=== PATIENT | female | born 1960 | race Caucasian/White ===

== ENCOUNTER 2023-10-20 12:45 | Emergency (ER) | payer OTHER, MEDICAID, SELFPAY ==
[2023-10-20 12:59] VITALS: BP 147/82; PULSE 51; RESP 17; TEMP 36.6; O2SAT 93; BMI 37.4
--- NOTE | 2023-10-20 13:03 | DI.RAD.S_ITS ---
PROCEDURE: XR SHOULDER LT MIN 2V INDICATIONS: shoulder pain TECHNIQUE: For views of the shoulder were acquired. COMPARISON: None. FINDINGS: Bones: No acute fracture or dislocation. Inferior subluxation of humeral head in relation to glenoid suggestive of moderate to large joint effusion. Moderate acromioclavicular joint and glenohumeral joint osteoarthritic changes also seen. No suspicious bony lesions. Visualized ribs appear intact. Soft tissues: No suspicious soft tissue calcifications. IMPRESSION: Suggestion of moderate to large joint effusion with inferior subluxation at glenohumeral joint. No acute fracture or dislocation. Moderate left shoulder joint osteoarthritis. Dictated by: Keyon Espinoza M.D. on 10/20/2023 at 13:52 Approved by: Keyon Espinoza M.D. on 10/20/2023 at 13:55
[2023-10-20 14:01] VITALS: PULSE 48; RESP 20; O2SAT 96
--- NOTE | 2023-10-20 14:35 | ED.GENADULT ---
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 Patient states in the last week she was cleaning a lot started having discomfort in her left shoulder. She states she did not recall any trauma or injury. Her friend noticed her shoulder looks like it has sitting a little bit lower. Patient states that it is painful to lift her shoulder she has difficulty with it. She states most painful just behind the shoulder and a little bit in the front. Patient states she has not had any prior shoulder issues, she has not had any prior dislocations. She is pain radiates down a little bit. No numbness tingling or weakness. Patient states no other injuries. She has been taking Tylenol for pain. She is on methadone chronically. No known drug allergies. Related Data Allergies Allergy/AdvReac Type Severity Reaction Status Date / Time No Known Drug Allergies Allergy Verified 10/20/23 13:04 Review of Systems Review of Systems ROS Unobtainable: All systems reviewed & are unremarkable except as noted in HPI and below Patient History Social History Smoking Status: Unknown if ever smoked Smoking Status: Unknown if ever smoked alcohol intake frequency: holidays/special occasions only Substance Use Type: does not use Exam Narrative Exam Narrative: GENERAL: Alert and oriented x three, mild distress. HEENT: Head normocephalic, atraumatic, EOMI, pupils reactive, face symmetric, moist mucous membranes NECK: Supple, full range of motion CARDIOVASCULAR: Regular rate and rhythm without murmurs, rubs or gallops. RESPIRATORY: Breath sounds equal bilaterally, no wheezes rales or rhonchi. ABDOMEN: Soft, nontender. Normoactive bowel sounds all 4 quadrants. No guarding or rebound, rigidity, no mass EXTREMITIES: Normal range of motion of the wrist, fingers and show elbow. Patient has decreased movement of the shoulder. With the internal external rotation patient does have feels like some instability. She has mild tenderness posterior AC joint. No tenderness of the biceps tendon. No obvious deformity of the shoulder itself but left shoulder seems to sit little bit lower. No clubbing or edema. Neurovascularly intact. 2+ radial pulses bilaterally. Sample Distributor equal bilaterally. Patient is using her phone with her left hand without issue. No warmth erythema or other changes appreciated. No swelling. NEUROLOGICAL: Cranial nerves II through XII grossly intact. Moving all extremities SKIN: Warm, dry, no petechiae, no rashes or lesions. Initial Vital Signs Initial Vital Signs: Vital Signs Temperature 97.8 F 10/20/23 12:59 Pulse Rate 51 L 10/20/23 12:59 Respiratory Rate 17 10/20/23 12:59 Blood Pressure 147/82 H 10/20/23 12:59 Pulse Oximetry 93 10/20/23 12:59 Oxygen Delivery Method Nasal Cannula 10/20/23 12:59 Oxygen Flow Rate 2.5 10/20/23 12:59 Course Orders Ordered: ED Orders 10/20/23 13:03 XR shoulder LT min 2V Stat 10/20/23 15:15 CT UE LT wo con Stat Vital Signs Vital signs: Vital Signs - 8 hr 10/20/23 12:59 10/20/23 14:01 10/20/23 16:54 Temperature 97.8 F Pulse Rate 51 L 48 L 49 L Respiratory Rate 17 20 22 Blood Pressure 147/82 H 184/82 H Pulse Oximetry 93 96 94 Oxygen Delivery Method Nasal Cannula Nasal Cannula Nasal Cannula Oxygen Flow Rate 2.5 2 2 Medical Decision Making Imaging Data Extremity x-ray #1: Radiologist's Impression: [address] [address] XRay Report Signed Patient: Samantha Beard MR#: [id number] : 1960 Acct:[id number] Age/Sex: 63 / F Date of Service: 10/20/23 Loc: ED Accession Number: [id number] Procedure: XR shoulder LT min 2V Ordering Provider: Tracey Ferreira P.A-C PROCEDURE: XR SHOULDER LT MIN 2V INDICATIONS: shoulder pain TECHNIQUE: For views of the shoulder were acquired. COMPARISON: None. FINDINGS: Bones: No acute fracture or dislocation. Inferior subluxation of humeral head in relation to glenoid suggestive of moderate to large joint effusion. Moderate acromioclavicular joint and glenohumeral joint osteoarthritic changes also seen. No suspicious bony lesions. Visualized ribs appear intact. Soft tissues: No suspicious soft tissue calcifications. IMPRESSION: Suggestion of moderate to large joint effusion with inferior subluxation at glenohumeral joint. No acute fracture or dislocation. Moderate left shoulder joint osteoarthritis. Dictated by: Keyon Espinoza M.D. on 10/20/2023 at 13:52 Approved by: Keyon Espinoza M.D. on 10/20/2023 at 13:55 CT shoulder : Radiologist's Impression: [address] [address] [address] Scan Report Signed Patient: Samantha Beard MR#: [id number] : 1960 Acct:[id number] Age/Sex: 63 / F Date of Service: 10/20/23 Loc: ED Accession Number: [id number] Procedure: CT UE LT wo con Ordering Provider: Layla López D.O. PROCEDURE: CT UE LT WO CON INDICATIONS: shoulder, dislocation vs other TECHNIQUE: Noncontrast 0.75 mm thick sections acquired from the acromioclavicular joint to the inferior scapula, with coronal and sagittal reformatting. COMPARISON: [facility], CR, XR SHOULDER LT MIN 2V, 10/20/2023, 13:12. FINDINGS: Image quality: Excellent. Bones: There is moderate acromioclavicular joint and glenohumeral joint osteoarthritis with joint space narrowing, subchondral sclerosis and marginal osteophyte formation. No acute fracture or dislocation. Slight inferior subluxation of humeral head in relation to glenoid is seen. Nonspecific subcortical cystic areas involving anterior and lateral aspect of humeral head near rotator cuff tendon insertion is seen. No suspicious bony lesions. The visualized left ribs are intact. Soft tissues: There is moderate glenohumeral joint effusion and subacromial subdeltoid bursal fluid. No calcified intra-articular loose bodies. No definite full-thickness rotator cuff tendon rupture. No significant rotator cuff muscle atrophy is seen on sagittal images. No abnormal soft tissue calcifications. There is no axillary lymphadenopathy by size criteria. The visualized left lung field show scattered scarring/atelectasis and mild centrilobular emphysema. No focal infiltrate or pneumothorax. IMPRESSION: 1. Moderate glenohumeral joint effusion and subacromial subdeltoid bursal fluid. No calcified intra-articular loose bodies. 2. Slight inferior subluxation of humeral head in relation to glenoid . No acute fracture or dislocation. Moderate acromioclavicular joint and glenohumeral joint osteoarthritis. 3. No full-thickness rotator cuff tendon rupture. No significant rotator cuff muscle atrophy. No abnormal soft tissue calcifications. Dictated by: Keyon Espinoza M.D. on 10/20/2023 at 15:45 Approved by: Keyon Espinoza M.D. on 10/20/2023 at 15:48 [facility] Narrative Medical decision making narrative: Spoke with Dr. Mcclelland, nontraumatic subluxation. Reviewed imaging, patient and feel like she had a little bit of instability on exam. CT shows moderate glenohumeral joint effusion subacromial subdeltoid bursal fluid no calcified intra-articular loose bodies. Slight inferior sublux humeral head in relation to glenoid no acute fracture or dislocation moderate AC joint and glenohumeral joint osteoarthritis. No full-thickness rotator cuff tendon rupture, no significant rotator cuff atrophy. Discussed with Dr. Espinoza, plan for sling follow up in the office. Discussed with patient decrease usage can work on range of motion. Discharge Plan Departure Patient Disposition: Home Clinical Impression: Effusion of glenohumeral joint of left upper extremity Activity Restrictions/Additional Instructions: Your imaging today shows a moderate glenohumeral joint effusion and some subacromial subdeltoid bursal fluid. There is a slight subluxation of the humeral head but no fracture or dislocation of the shoulder. You do have osteoarthritis in the AC joint and glenohumeral joint. There is no full-thickness rotator cuff tendon rupture, this does not completely rule out partial tear. Follow-up with orthopedic surgery. Please call to set up a follow up appointment. Contact information is included below. You continue with Tylenol up to a 1000 mg every 6 hours. Elevated affected body part to decrease swelling. OK to use ice pack on the affected body part. Use for 15-20 minutes each time, for 5-6x per day. If you develop worsening pain, numbness, tingling, discoloration of the affected body part, adjust the sling, and either see your doctor for an urgent re-assessment, or return to the Emergency Department. Return to the Emergency Department for any new or worsening symptoms. Referrals: Solo Mcclelland MD [Physician] - Miscellaneous,MD Debby [Primary Care Provider] - Stand Alone Forms: Patient Portal/API
--- NOTE | 2023-10-20 15:15 | DI.CT.S_ITS ---
PROCEDURE: CT UE LT WO CON INDICATIONS: shoulder, dislocation vs other TECHNIQUE: Noncontrast 0.75 mm thick sections acquired from the acromioclavicular joint to the inferior scapula, with coronal and sagittal reformatting. COMPARISON: [facility], CR, XR SHOULDER LT MIN 2V, 10/20/2023, 13:12. FINDINGS: Image quality: Excellent. Bones: There is moderate acromioclavicular joint and glenohumeral joint osteoarthritis with joint space narrowing, subchondral sclerosis and marginal osteophyte formation. No acute fracture or dislocation. Slight inferior subluxation of humeral head in relation to glenoid is seen. Nonspecific subcortical cystic areas involving anterior and lateral aspect of humeral head near rotator cuff tendon insertion is seen. No suspicious bony lesions. The visualized left ribs are intact. Soft tissues: There is moderate glenohumeral joint effusion and subacromial subdeltoid bursal fluid. No calcified intra-articular loose bodies. No definite full-thickness rotator cuff tendon rupture. No significant rotator cuff muscle atrophy is seen on sagittal images. No abnormal soft tissue calcifications. There is no axillary lymphadenopathy by size criteria. The visualized left lung field show scattered scarring/atelectasis and mild centrilobular emphysema. No focal infiltrate or pneumothorax. IMPRESSION: 1. Moderate glenohumeral joint effusion and subacromial subdeltoid bursal fluid. No calcified intra-articular loose bodies. 2. Slight inferior subluxation of humeral head in relation to glenoid . No acute fracture or dislocation. Moderate acromioclavicular joint and glenohumeral joint osteoarthritis. 3. No full-thickness rotator cuff tendon rupture. No significant rotator cuff muscle atrophy. No abnormal soft tissue calcifications. Dictated by: Keyon Espinoza M.D. on 10/20/2023 at 15:45 Approved by: Keyon Espinoza M.D. on 10/20/2023 at 15:48
[2023-10-20 16:54] VITALS: BP 184/82; PULSE 49; RESP 22; O2SAT 94
== END 2023-10-20 16:56 | disposition home or self-care (01) ==
PROVIDERS: Emergency Provider Emergency Medicine
DX: M25.412 Effusion, left shoulder (principal)
CPT/HCPCS: 73030; 73200; 99284; 99285

== ENCOUNTER → 2024-12-02 12:45 | Outpatient (CLI) | payer OTHER, SELFPAY ==
[2024-12-02 13:51] LABS: Add Manual Diff / Slide Review NO; Hematocrit 39.0 % (36-46); Hemoglobin 13.2 g/dL (12.0-16.0); Lymphocytes Absolute Auto 1500 /uL (1100-4500); Mean Corpuscular HGB Conc 34.0 % (30-36); Mean Corpuscular Hemoglobin 30.1 PG (26-34); Mean Corpuscular Volume 88.5 fL (80-100); Platelet Count 193 X10^3/uL (150-400)
[2024-12-02 14:23] LABS: Alanine Aminotransferase 12 IU/L (<35); Albumin 4.4 g/dL (3.5-5.0); Albumin Globulin Ratio 1.4 (1.0-2.8); Alkaline Phosphatase 112 U/L (38-126); Blood Urea Nitrogen 10 mg/dL (7-17); Calcium 9.0 mg/dL (8.4-10.2); Carbon Dioxide 31 mmol/L (22-32); Chloride 103 mmol/L (98-107); Cholesterol 110 mg/dL (140-199); Estimated Glomerular Filt Rate > 60 mL/min (>60); Globulin 3.1 g/dL (1.7-4.1); Glucose 69 mg/dL (70-99); HDL Cholesterol 40 mg/dL (40-60); HEMOLYSIS < 15 (0-50); Potassium 4.3 mmol/L (3.4-5.1); Sodium 143 mmol/L (137-145); Total Protein 7.5 g/dL (6.3-8.2); Triglycerides 114 mg/dL (35-150)
[2024-12-02 14:55] LABS: TSH w/ Reflex to FT4 0.99 uIU/mL (0.47-4.68)
== END ==
PROVIDERS: Referring Provider Family Medicine; Visit Provider Family Medicine
DX: E78.5 Hyperlipidemia, unspecified (principal); E03.9 Hypothyroidism, unspecified; G47.9 Sleep disorder, unspecified
CPT/HCPCS: 36415; 80053; 80061; 84443; 85025

== ENCOUNTER → 2024-12-13 11:52 | Outpatient (CLI) | payer OTHER, SELFPAY | PROVIDERS: Referring Provider Family Medicine; Visit Provider Family Medicine | DX: J44.9 Chronic obstructive pulmonary disease, unspecified (principal); G47.33 Obstructive sleep apnea (adult) (pediatric); Z87.891 Personal history of nicotine dependence; R94.2 Abnormal results of pulmonary function studies | CPT/HCPCS: 94060; 94726; 94729 ==

== ENCOUNTER → 2025-03-13 14:38 | Outpatient (CLI) | payer OTHER, SELFPAY ==
--- NOTE | 2025-03-13 14:40 | DI.RAD.S_ITS ---
PROCEDURE: XR KNEE LT 3V INDICATIONS: Knee pain TECHNIQUE: 3 views of the knee were acquired. COMPARISON: None. FINDINGS: Bones: No fractures or dislocations. No suspicious bony lesions. Moderate tricompartmental arthritic change most severe medially. Periarticular osteophytes are present. Chondrocalcinosis is present. No distinct erosions. Soft tissues: Moderate joint effusion. No suspicious soft tissue calcifications. IMPRESSION: Tricompartmental arthritic changes as above. Dictated by: Humera Greer M.D. on 03/13/2025 at 16:30 Approved by: Humera Greer M.D. on 03/13/2025 at 16:31
--- NOTE | 2025-03-13 14:40 | DI.RAD.S_ITS ---
PROCEDURE: XR KNEE RT 3V INDICATIONS: leg pain TECHNIQUE: 3 views of the knee were acquired. COMPARISON: None. FINDINGS: Bones: No fractures or dislocations. No suspicious bony lesions. Moderate tricompartmental arthritic change most severe medially. Minimal periarticular osteophytes. Chondrocalcinosis is present. No distinct erosions. Soft tissues: [id number] joint effusion. No suspicious soft tissue calcifications. IMPRESSION: Moderate tricompartmental arthritic change. Dictated by: Humera Greer M.D. on 03/13/2025 at 16:31 Approved by: Humera Greer M.D. on 03/13/2025 at 16:31
--- NOTE | 2025-03-13 14:40 | DI.RAD.S_ITS ---
PROCEDURE: XR CHEST 2V INDICATIONS: COPD TECHNIQUE: 2 views of the chest were acquired. COMPARISON: None. FINDINGS: Surgical changes and devices: None. Lungs and pleura: Mild emphysematous changes bilaterally. No consolidation. No pleural effusions or pneumothorax. Mediastinum: Mediastinal contours are normal. Heart size is normal. Bones and chest wall: No suspicious bony abnormalities. Surgical clips in the left breast. IMPRESSION: No acute cardiopulmonary abnormality is seen. Consider annual low-dose cancer screening if eligible (age 50-85 who have 20 pack-year smoking history and current smoker-quit within the last 15 years). Dictated by: Shar Martinez M.D. on 03/13/2025 at 15:30 Approved by: Shar Martinez M.D. on 03/13/2025 at 15:31
== END ==
PROVIDERS: PCP Family Medicine; Referring Provider Family Medicine; Visit Provider Family Medicine
DX: M11.262 Other chondrocalcinosis, left knee (principal); M11.261 Other chondrocalcinosis, right knee; M25.561 Pain in right knee; M25.562 Pain in left knee; J44.9 Chronic obstructive pulmonary disease, unspecified; R20.0 Anesthesia of skin; M25.462 Effusion, left knee; M25.461 Effusion, right knee
CPT/HCPCS: 71046; 73562

== ENCOUNTER → 2025-04-26 12:20 | Outpatient (CLI) | payer OTHER, SELFPAY ==
--- NOTE | 2025-04-26 12:21 | DI.CT.S_ITS ---
PROCEDURE: CT LUNG LOW DOSE SCREENING INDICATIONS: tobacco abuse TECHNIQUE: Noncontrast 2.0-2.5 mm thick sections acquired from the pulmonary apices to the posterior costophrenic angles. 7 mm thick axial MIP, and 5 mm coronal and sagittal reformats were then acquired. For radiation dose reduction, the following was used: automated exposure control, adjustment of mA and/or kV according to patient size. COMPARISON: None. FINDINGS: Image quality: Diagnostic. Lower Neck: No enlarged lymph nodes. Thyroid: No thyroid nodules which require sonographic follow up, per consensus guidelines. Axillae: No enlarged lymph nodes. Chest Wall: Postsurgical changes in the left breast. Bones: Unremarkable. Lungs and Pleura: No pneumothorax or pleural effusions. No consolidation. Scattered calcified granulomas and pulmonary micro nodules. Heart: Heart size is normal. No pericardial effusion. Mild coronary artery calcifications. Thoracic Vessels: The aorta and pulmonary arteries demonstrate normal size. Mediastinum and Magalys: No enlarged lymph nodes. Esophagus: No wall thickening. No hiatal hernia. Upper Abdomen: Visualized upper abdomen solid organs and bowel loops appear normal. IMPRESSION: Scattered calcified granulomas in pulmonary micronodules. LUNG-RADS 2; continued annual screening, if eligible. Clinically Significant Non-pulmonary Findings: None. Approved by: Debi Grimes M.D.,Ph.D. on 04/27/2025 at 8:35
--- NOTE | 2025-04-26 12:21 | DI.MG.S_ITS ---
MM diagnostic mammo BI, US breast LT limited: 04/26/2025 BI-RADS: 4C CLINICAL: 64-year old female for bilateral diagnostic mammogram and left diagnostic breast ultrasound. No Tyrer-Cuzick risk score calculation due to the patient's personal history of breast cancer. Patient reports a history of left breast carcinoma diagnosed at age 42. Status-post left lumpectomy with radiation therapy and hormonal therapy. No first-degree family history of breast cancer. Current reported family history of breast cancer: maternal aunt. The patient reports a palpable abnormality (3 months) in the left breast. The patient had prior bilateral breast biopsies. PRIOR EXAMS Outside priors 07/25/2022, 12/28/2020, 11/27/2017. MAMMOGRAPHY TECHNIQUE: 2D and 3D (tomosynthesis) digital mammographic views obtained, with additional images as needed for full coverage. Current study was also evaluated with a Computer Aided Detection (CAD) system. ULTRASOUND TECHNIQUE: Left targeted breast ultrasound of the area of clinical interest and the axilla was performed with image documentation. Real-time farris scale and color doppler imaging of the area of clinical interest was performed with image documentation. DENSITY C. The breasts are heterogeneously dense, which may obscure small masses. MAMMOGRAPHY FINDINGS Right: No suspicious mass, asymmetry, microcalcification, or other abnormality seen. Left (finding-1): Lower Central, Middle depth, measuring 0.8cm: There is a new spiculated, irregular mass present. Left (finding-2): Upper Central, Middle depth: Underlying surface marker and correlating with palpable lump there are benign dystrophic calcifications. There is associated postsurgical change. ULTRASOUND FINDINGS Left (finding-1): Lower at 6:00, 3 cm from nipple, measuring 1 x 0.4 x 0.7 cm: Correlating with findings on mammogram there is an irregularly shaped, spiculated, hypoechoic mass. Doppler shows no vascularity. Left (finding-2): Upper at 12:00, 8 cm from nipple, measuring 1 x 0.6 cm: Correlating with findings on mammogram there is a post-operative change with macrocalcifications. Doppler shows no vascularity. Left: Axilla: No abnormal lymph nodes are seen in the axilla. IMPRESSION: Right * No evidence of malignancy. Left (Mass): Lower at 6:00, 3 cm from nipple, measuring 1 x 0.4 x 0.7 cm * High Suspicion for Malignancy. RECOMMENDATIONS Left: Lower at 6:00, 3 cm from nipple * Ultrasound-guided biopsy for further evaluation to be performed today. Left * Clinical follow-up is recommended, and further management of palpable abnormalities or other focal signs or symptoms should be based on the results of clinical evaluation. If palpable abnormality or other concerning symptom persists or progresses, further clinical evaluation should be considered. COMMENTS: Findings and recommendations were conveyed to the patient during today's evaluation by Dr. Greer. OVERALL ASSESSMENT CATEGORY BI-RADS-4: Suspicious. ELECTRONICALLY SIGNED: Selena Serrano M.D. on 04/26/2025 at 03:16:59 PM PT Interpreting Station ID: [id number]
== END ==
LOC: MAMMO 12:20
PROVIDERS: PCP Family Medicine; Referring Provider Family Medicine; Visit Provider Family Medicine
DX: N63.22 Unspecified lump in the left breast, upper inner quadrant (principal); N63.23 Unspecified lump in the left breast, lower outer quadrant; R92.333 Mammographic heterogeneous density, bilateral breasts; R92.1 Mammographic calcification found on diagnostic imaging of breast; J98.4 Other disorders of lung; R91.8 Other nonspecific abnormal finding of lung field; F17.200 Nicotine dependence, unspecified, uncomplicated; Z85.3 Personal history of malignant neoplasm of breast; Z80.3 Family history of malignant neoplasm of breast
CPT/HCPCS: 71271; 76642; 77066; G0279